=== PATIENT | female | born 1965 | race Caucasian/White ===

== ENCOUNTER 2017-11-07 14:31 | Emergency (ER) | payer SELFPAY ==
[~2017-11-07] VITALS: Ht 165.1 cm; Wt 80.0 kg
[~2017-11-07 14:31] MED LIST: ALTOPREV20 MG PO; ASPIRIN EC81 MG PO; LEVOTHYROXIN50 MC1 PO; LISINOPRIL10 MG PO; LORATADINE10 M1 PO; METOPROL TAR25 MG PO
[2017-11-07] MEDS ORDERED: MOTRIN400 MG PO (15:04)
[2017-11-07 15:16] VITALS: BP 148/68
== END 2017-11-07 15:20 | disposition home or self-care (01) | DRG 558 ==
LOC: ED 14:31
DX: M77.11 Lateral epicondylitis, right elbow (principal); X50.3XXA Overexertion from repetitive movements, initial encounter; Y93.E6 Activity, residential relocation; Y92.009 Unspecified place in unspecified non-institutional (private) residence as the place of occurrence of the external cause

== ENCOUNTER 2018-06-16 22:05 | Emergency (ER) | payer SELFPAY ==
[~2018-06-16] VITALS: Ht 165.1 cm; Wt 100.4 kg
[~2018-06-16 22:05] MED LIST changes: +MOTRIN400 MG PO
[2018-06-16 22:49] LABS: IMMATURE GRANULOCYTES 0.2 % (0.0-5.0); MEAN CELL VOLUME 82.3 fL CALC (80.0-100.0); MEAN CORPUSCULAR HGB 28.1 pG CALC (26.0-32.0); MEAN CORPUSCULAR HGB CONC 34.1 g/L CALC (32.0-36.0); NEUT# 4.76 thou/uL (2.00-7.15); RED BLOOD COUNT 5.7 mill/uL (4.20-5.60); RED CELL DISTRI WIDTH 13.6 % (11.5-15.5)
[2018-06-16 22:50] LABS: HEMATOCRIT 46.9 % (37.0-47.0); URINE BILIRUBIN - DIPSTICK NEGATIVE (NEGATIVE); URINE BLOOD DIPSTICK NEGATIVE (NEGATIVE); URINE COLOR YELLOW; URINE GLUCOSE - DIPSTICK NEGATIVE (NEGATIVE); URINE KETONE NEGATIVE (NEGATIVE); URINE LEUK ESTERASE TRACE (NEGATIVE); URINE NITRITE - DIPSTICK NEGATIVE (Negative); URINE PH 6.5 (4.5-8.0); URINE PROTEIN - DIPSTICK NEGATIVE (NEG-TRACE); URINE UROBILINOGEN - DIPSTICK 0.2 E.U./dL (0.2)
[2018-06-16 22:55] LABS: COCAINE NEGATIVE (NEGATIVE); METHADONE NEGATIVE (NEGATIVE); TETRAHYDROCANNABIONOL NEGATIVE (NEGATIVE)
[2018-06-16 22:56] LABS: BARBITURATES NEGATIVE (NEGATIVE); OXCYCODONE NEGATIVE (NEGATIVE); TRICYLIC ANTIDEPRESSANTS NEGATIVE (NEGATIVE)
[2018-06-16 23:02] LABS: ALKALINE PHOSPHATASE 111 u/l (38-126); ANION GAP 18 (6-22 (CALC)); BILIRUBIN, TOTAL 0.5 mg/dL (0.0-1.4); BUN 17 mg/dL (7-17); BUN/CREATININE RATIO 20 (12-20 (CALC)); CARBON DIOXIDE 27 mmol/l (22-30); CHLORIDE 102 mmol/l (95-108); CREATININE 0.9 mg/dL (0.5-1.0); GFR > 60 ML/MIN (>=60 (CALC)); GFR FOR AFR.AMER. > 60 ML/MIN (>=60 (CALC)); POTASSIUM 3.6 mmol/l (3.5-5.1); SGOT/AST 23 u/l (14-36); SODIUM 143 mmol/l (137-146); TOTAL PROTEIN 8.5 g/dL (6.3-8.2); URINE BACTERIA FEW hpf; URINE RBC 0-2 RBC/hpf (0-5); URINE SQUAMOUS EPITHELIAL CELL RARE EPI/hpf (0-FEW); URINE WBC 0-2 WBC/hpf (0-5)
[2018-06-16 23:14] LABS: MYOGLOBIN 35 ng/mL (0 - 62)
[2018-06-16] MEDS ORDERED: LISINOPRIL10 MG PO (23:37)
[2018-06-16 23:50] VITALS: BP 146/83
== END 2018-06-17 00:01 | disposition home or self-care (01) | DRG 305 ==
LOC: ED 22:05
PROVIDERS: Emergency Medicine
DX: I10 Essential (primary) hypertension (principal); R51 Headache; T46.5X6A Underdosing of other antihypertensive drugs, initial encounter; Z91.120 Patient's intentional underdosing of medication regimen due to financial hardship